=== PATIENT | female | born 1990 | race African-American/Black ===

== ENCOUNTER 2018-09-28 17:15 | Emergency (ER) | payer MEDICAID ==
[~2018-09-28] VITALS: Ht 170.2 cm; Wt 113.4 kg
--- NOTE | 2018-09-28 17:39 | NUR ---
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 PT STATED THAT SHE USED 6 PADS. PT STATED THAT HE LMP STARTED 09/16/18 AND ENDED 09/20/18. PT HAS 2 SMALL CHILDREN AT THE BEDSIDE. PT IS NOT SURE HOW LONG SHE IS .
[2018-09-28 18:24] LABS: BASOPHILS % (AUTO) 0.5 % (0.0-2.0); HEMATOCRIT 31 % (33-45); HEMOGLOBIN 10.3 g/dL (11.5-14.8); LYMPHOCYTES # (AUTO) 1.1 /CMM (0.8-4.8); LYMPHOCYTES % (AUTO) 33.9 % (20.0-44.0); MEAN CORPUSCULAR HGB CONC 33 g/dl (31.0-36.0); MEAN CORPUSCULAR VOLUME 91 fL (82-100); MONOCYTES # (AUTO) 0.3 /CMM (0.1-1.30); MONOCYTES % (AUTO) 10.3 % (2.0-12.0); NEUTROPHILS # (AUTO) 1.7 /CMM (1.8-8.9); NEUTROPHILS % (AUTO) 53.3 % (43.0-81.0); PLATELET COUNT (AUTO) 208 /CMM (150-450); RED BLOOD CELL COUNT(AUTO) 3.42 MIL/uL (4.0-5.2); WHITE BLOOD COUNT (AUTO) 3.2 K/uL (4.3-11.0)
--- NOTE | 2018-09-28 18:45 | NUR ---
SPOKE TO THE LAB, WAITING FOR TEST TO BE RUN BEFORE BLOOD BANK CAN SET UP ORDER
--- NOTE | 2018-09-28 19:38 | NUR ---
PT IS NOT A CANDIDATE FOR [facility]
--- NOTE | 2018-09-28 19:38 | NUR ---
CALLED LAB. PT IS NEGATIVE FOR [facility].
--- NOTE | 2018-09-28 19:40 | NUR ---
Patient discharged to home in stable condition. Written and verbal after care instructions given. Patient verbalizes understanding of instruction. PT REC'D A COPY OF HER LABS. PT VSS. PT AMBULATED OUT WITH HER TWO CHILDREN. PT IS GETTING PICKED UP BY A FRIEND.
[2018-09-28 19:46] VITALS: BP 128/58
== END 2018-09-28 19:38 | disposition home or self-care (01) ==
LOC: ER 17:19
DX: O03.9 Complete or unspecified spontaneous abortion without complication (principal); Z88.0 Allergy status to penicillin; Z88.6 Allergy status to analgesic agent
CPT/HCPCS: 36415; 76805-TC; 84702-TC; 85025-TC